=== PATIENT | female | born 1965 | race Caucasian/White ===

== ENCOUNTER 2023-01-10 17:00 | Emergency (ER) | payer MEDICARE, OTHER | END 2023-01-10 17:39 | disposition left against medical advice (07) | LOC: VM.ED 17:00 | DX: Z53.21 Procedure and treatment not carried out due to patient leaving prior to being seen by health care provider (principal) ==

== ENCOUNTER 2023-01-11 17:37 | Emergency (ER) | payer MEDICARE | END 2023-01-11 18:40 | disposition left against medical advice (07) | LOC: VM.ED 17:37 | DX: R44.0 Auditory hallucinations (principal) | CPT/HCPCS: 99283; 99284 ==